=== PATIENT | female | born 1985 ===

== ENCOUNTER 2021-02-10 09:15 | Outpatient (RCR) | payer OTHER, SELFPAY ==
[2021-01-28 14:07] VITALS: BMI 27.4
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
--- NOTE | 2021-01-29 08:24 | PC.ADMIT ---
Patient is a 35 year old female who self referred to [facility] d/t PTSD sxs, increase in anxiety with panic attacks, and depression. Patient is newly sober since October and is struggling with her mental health. Patient is currently living at a sober home called [facility] and reports being sober since October. She reports that she has attended PHP in the past and it was helpful. Patient reports a history of inpatient admission in September s/p overdose on 50 tabs of Seroquel. Patient stated she called a friend who lives down the street after taking the pills and her friend drove her to the hospital for help. Patient stated the SA was a cry for help as she was feeling alone and hopeless at the time and that no one understood her. Feels grateful that it, didn't kill me . Patient reports legal issues (See Integrated Assessment for more details). Patient has a significant trauma history. Patient presented with irritable/agitated mood, restless in the beginning of the assessment however as the assessment went on patient's mood became less irritable. Patient denied SI. 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 Emailed patient a copy of her safety plan. Medications reconciled with patient and patient's pharmacy. Patient reports she is medication compliant. Patient stated [facility] her her medications that are in a locked box.
--- NOTE | 2021-01-29 13:20 | PC.NURSE ---
Patient called and left a message stating she was not feeling well and thinks it is something she ate. Stated she will not be attending group for the remainder of the day as a result. Patient plans on attending tomorrow. I called patient back and left a voice mail for patient to call me back to follow up.
--- NOTE | 2021-01-29 14:48 | PC.NURSE ---
case opened in treatment team
--- NOTE | 2021-02-03 14:40 | PC.NURSE ---
When client did not show up for the third group I called her. She states that she fell asleep and I just woke her up. She has been struggling with a headache all morning. She will be in tomorrow.
--- NOTE | 2021-02-04 11:38 | P.PNPSP_ITS ---
Subjective Subjective Date of Service: 02/04/21 Reason For Visit: Borderline Personality D/o, Anxiety, PTSD Subjective Notes: Lamar Warning Guardianship: No Medical Problems Affecting Mental Status: No Interim History: Maral reports overall feeling her mood has improved. However, is asking to be started on lamictal, as she had taken it in 2019 with positive effect for mood stabilization. Reports positive effect regarding increase of risperdal to 1mg in am. Continues with 0.5mg in pm. Reports has taken the seroquel 25prn several times, but is not taking daily, as she has not needed it. Wishes to remain on seroquel 100mg at night, as it helps me sleep . Reports she has not been experiencing nightmares or drug using dreams over past week. States intermediate house is stressful presently, due to half the residents testing positive for Covid, and isolation protocols in effect. Reports my recovery is going great , maintaining sobriety. Says that she knew that once my mental health was getting treated, I would not want to use . Denies any cravings. Says her outpatient psych prescriber has informed her to call when she completes PHP, and will see her then, and not see her while she is here. Denies SI, or any thoughts of self harm. No safety concerns. Medication Compliance: Yes Side effects from medications: No Attending Groups: Yes Review of Systems Acute medical concerns: No Medical Review of Systems: unchanged Review of Systems Review of Systems Yes all other systems are reviewed and are negative Mental Status Exam Mental Status Exam Narrative: Well-developed, well-nourished female, no apparent distress. No withdrawals / cravings noted. Alert and oriented x4. Well groomed, appropriately dressed. Fully alert and oriented x4. Appropriate and attentive during encounter, good eye contact. No abnormal movements noted. Posture erect. Ambulation not observed. Speech clear, normal alvin, articulate. Mood anxious, we have alot of stress in house right now . Affect congruent. Did not appear to be responding to internal stimuli. Denies AH/VH. Denies SI/HI. Thought process linear, goal-centered. Judgment and insight continue fair. Diagnostics Vital Signs (24Hr): Body Mass Index 27.4 Assessment & Plan Assessment & Plan (1) Mood disorder: Status: Acute Code(s): F39 - Unspecified mood [affective] disorder Assessment and Plan: Patient reports does not feel Trileptal is at adequate doses. Requesting to be started on Lamictal. Education regarding Trileptal and Lamictal provided, patient willing to increase dose of Trileptal to 450 mg twice daily. Patient taking seroquel 25mg prn, but not daily. Continues on risperdal 1mg in am, 0.5 at night, with positive effect. Discussed concurrent use of risperdal and seroquel. Patient wishes to continue with bedtime seroquel 100mg as it helps me sleep . (2) PTSD (post-traumatic stress disorder): Status: Acute Code(s): F43.10 - Post-traumatic stress disorder, unspecified Assessment and Plan: Patient reports prazosin 5 mg at bedtime is working well to help prevent nightmares. Reports the Risperdal is helping with intrusive thoughts, flashbacks, hyperarousal and hypervigilance. 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 Reports intermediate house is a supportive environment. Says working on sobriety, denies cravings, denies dreams of drug use. Assessment and Plan: Patient reports overall mood is improved, however still feels anxious, that her mood continues somewhat unstable. Also reports situational stress in house, related to multiple residents having active Covid, and subsequent isolation precautions. PLAN: 1. Increase trileptal to 450mg BID. 2. Continue other medications as ordered. 3. Follow-up as per protocol. Patient educated on: diagnosis, medication risk/benefits, substance abuse and therapeutic strategies Informed Consent: understands Reason for contiued partial hosp. stay Substantial Risk for: inability to function and med/psych decompensation Certification I certify that partial hospital treatment is medically necessary due to the symptoms and problems resulting from the patient's mental illness and the failure to treat the patient at the partial hospital level of care would likely result in the patient requiring inpatient psychiatric care which could not be prevented at a less intensive level of care. Greater than 50% of the session was spent on counseling and/or coordination of care Discharge Plan Discharge Attending provider: Getachew Proctor Medications: New risperidone 1 mg tablet 1 mg PO DAILY 7 Days Qty: 7 RF: 0 quetiapine [Seroquel] 25 mg tablet 25 mg PO DAILY PRN (Reason: anxiety) 7 Days Qty: 7 RF: 0 oxcarbazepine [Trileptal] 150 mg tablet 150 mg PO BID Qty: 14 RF: 0 No Action albuterol sulfate 90 mcg/actuation Hfa Aerosol Inhaler 2 puff INHALATION QID PRN (Reason: Shortness Of Breath) RF: 0 ibuprofen [Motrin] 800 mg Tablet 800 mg PO DAILY PRN (Reason: Pain) RF: 0 oxcarbazepine 300 mg Tablet 300 mg PO BID RF: 0 valacyclovir 500 mg Tablet 500 mg PO DAILY RF: 0 prazosin 5 mg Capsule 5 mg PO BEDTIME RF: 0 baclofen 10 mg Tablet 10 mg PO BID RF: 0 loratadine 10 mg Tablet 10 mg PO DAILY RF: 0 risperidone [Risperdal] 0.5 mg Tablet 0.5 mg PO BEDTIME RF: 0 quetiapine [Seroquel] 50 mg Tablet 100 mg PO BEDTIME RF: 0 Telehealth Telehealth Location of provider rendering services: practice address Location of patient: address on file Patient Identification confirmed using: Name, : Yes Telehealth method: video Patient verbally consented to treatment: Yes Patient verbally consented to billing insurance company: Yes Patient informed of any privacy concerns related to visit: Yes Time spent with patient (mins): 15
--- NOTE | 2021-02-05 12:53 | PC.NURSE ---
The client called this am to let us know that she is quarantined with her roommate and will not be able to attend this morning.
--- NOTE | 2021-02-09 13:06 | PC.NURSE ---
The client called out this morning because there was an emergency in her house and she was up most of the night. She states that she will be in tomorrow.
--- NOTE | 2021-02-10 13:31 | PC.NURSE ---
The client called during the first group to state that she left group because she was triggered by another group member who appeared to be high on cocaine. She states that she will not stay the day if he is in group.
--- NOTE | 2021-02-10 13:34 | PC.NURSE ---
I emailed a letter of completion directly to the client
--- NOTE | 2021-02-10 15:23 | P.EN_ITS ---
Event Note Date of Service: 02/10/21 Event Note: Attempted to contact patient via google meet for PHP psychopharm f [place] up appointment, however she did not log on for the virtual visit at the scheduled time. I called the patient during the scheduled time to inquire about her attendance and she did not answer, left VM asking her to log on or call the PHP program for update.
--- NOTE | 2021-02-11 09:54 | P.EN_ITS ---
Event Note Date of Service: 02/11/21 Event Note: Patient had left a message on answering machine on 02/10/2021 stating she was having difficulty logging into online provider meeting. This race and sports book writer called her and spoke with her on phone this morning. She is requesting refills of 1 mg Risperdal and the 150 mg Trileptal tabs, as she is awaiting her outpatient provider appointment. Scripts were sent for 30 day supply of each.
== END 2021-02-11 07:23 | disposition home or self-care (01) ==
LOC: HO.PHPA 09:15
PROVIDERS: Visit Provider Psychiatry & Neurology Psychiatry
DX: F43.10 Post-traumatic stress disorder, unspecified (principal); F33.2 Major depressive disorder, recurrent severe without psychotic features; F41.9 Anxiety disorder, unspecified; F60.3 Borderline personality disorder; F14.21 Cocaine dependence, in remission; Z79.899 Other long term (current) drug therapy; Z91.5 Personal history of self-harm
CPT/HCPCS: 90791; 90853

== ENCOUNTER 2023-11-04 08:14 | Outpatient (REF) | payer OTHER, SELFPAY ==
[2023-11-04 08:30] LABS: MANUAL DIFF FLAG NO
[2023-11-04 09:05] LABS: Basophils Percent Auto 0.2 % (0-2); Eosinophils Absolute Auto 0.1 X10*3/uL (0.0-0.4); Eosinophils Percent Auto 0.8 % (0-4); Estimated Average Glucose 105 mg/dL; Hematocrit 36.5 % (37.0-47.0); Hemoglobin 11.9 g/dl (12.0-16.0); Hemoglobin A1c % 5.3 % (<6.0); Imm Gran Abs Auto 0.05 X10*3/uL (0.00-0.03); Imm Gran Pct Auto 0.4 % (0.0-0.4); Lymphocytes Absolute Auto 2.9 X10*3/uL (1.2-4.9); Lymphocytes Percent Auto 25.7 % (20-40); Mean Corpuscular HGB Conc 32.6 g/dl (31.0-35.0); Mean Corpuscular Hemoglobin 26.6 pg (27.0-33.0); Mean Corpuscular Volume 81.5 fL (80.0-98.0); Mean Platelet Volume 9.7 fL (9.4-12.3); Monocytes Absolute Auto 0.7 X10*3/uL (0.1-1.2); Monocytes Percent Auto 5.7 % (2-11); Neutrophils Absolute Auto 7.7 x10*3/uL (2.0-8.3); Neutrophils Percent Auto 67.2 % (45-73); Platelet Count 297 X10*3/uL (160-400); Red Blood Count 4.48 X10*6/uL (4.20-5.50); Red Cell Distribution Width 14.1 % (11.0-16.0); White Blood Count 11.4 X10*3/uL (4.8-10.8)
[2023-11-04 09:44] LABS: Alanine Aminotransferase 10 U/L (0-31); Albumin Level 4.5 g/dL (3.5-5.0); Alkaline Phosphatase 58 U/L (39-117); Anion Gap 14 (12-20); Aspartate Amino Transferase 15 U/L (5-31); Bilirubin Total 0.6 mg/dL (0.0-1.0); Blood Urea Nitrogen 12 mg/dL (9-16); Calcium 9.5 mg/dL (8.4-10.2); Carbon Dioxide 25 mmol/L (22-29); Chloride 104 mmol/L (96-108); Cholesterol 202 mg/dL (<200); Estimated Glomerular Filt Rate > 60; Glucose Fasting 88 mg/dL (60-99); HDL Cholesterol 79 mg/dL (>40); LDL Cholesterol Calculated 109 mg/dL (<100); Potassium 4.6 mmol/L (3.3-5.1); Sodium 138 mmol/L (135-145); Total Protein 7.2 g/dL (6.5-8.0); Triglycerides 73 mg/dL (<150)
[2023-11-04 10:03] LABS: Syphilis Screen Reactive (Nonreactive)
[2023-11-04 10:05] LABS: HBS Num1 14.17 mIU/mL (0-7.99); HBc Num1 0.09 S/CO (0.00-0.79); HBsAGNum1 0.19 S/CO (0.00-0.99); HIV AB/AG Nonreactive (Nonreactive); HIV Num 1 0.05 S/CO (0.00-0.99); Hepatitis B Core Antibody Nonreactive (Nonreactive); Hepatitis B Surface Antigen Negative (Negative); ~HepC Num1 0.06 S/CO (0.00-0.79); ~Hepatitis B Surface Antibody REACTIVE (Nonreactive); ~Hepatitis C Antibody Nonreactive (Nonreactive)
[2023-11-04 10:08] LABS: Free T4 (Free Thyroxine) 0.89 ng/dL (0.71-1.85); Thyroid Stimulating Hormone 0.83 uIU/mL (0.32-4.0); Vitamin D 25-OH Total 29.9 ng/mL (>30)
[2023-11-04 10:50] LABS: Vitamin B12 675 pg/mL (200-900)
[2023-11-04 11:54] LABS: CT PCR NOT DETECTED (Not Detect.); NG PCR NOT DETECTED (Not Detect.)
[2023-11-11 14:44] LABS: RPR Quantitative Non-Reactive (Nonreactive)
[2023-11-11 14:46] LABS: T.Pallidum Particle Agg Test Reactive (Nonreactive)
== END 2023-11-04 08:15 | disposition home or self-care (01) ==
LOC: HO.LAB 08:14
PROVIDERS: PCP Physician Assistant Medical; Visit Provider Psychiatry & Neurology Psychiatry
DX: F33.2 Major depressive disorder, recurrent severe without psychotic features (principal); F41.9 Anxiety disorder, unspecified
CPT/HCPCS: 0353U; 80053; 80061; 82306; 82607; 83036; 84439; 84443; 85025; 86592; 86704; 86706; 86780; 86803; 87340; 87389

== ENCOUNTER 2023-11-08 08:45 | Outpatient (RCR) | payer OTHER, SELFPAY ==
[2023-10-27 11:53] VITALS: BMI 25.3
[2023-10-27 11:56] VITALS: BP 109/67; PULSE 70
--- NOTE | 2023-10-27 13:16 | PC.ADMIT ---
Patient is a 38 year old female who was referred to [facility] by probation services PO. According to Integrative Assessment patient is on probation for conspiracy and sex trafficking and has two more years to complete. She has a history of using heroin a few times in 2018, cocaine and alcohol, and is currently using Marijuana daily 10-15 hits a day. She does not feel this is an issue for her at this time. She reports having a medical marijuana card and her account officer is aware. She stated she uses marijuana for anxiety. Patient reports history of residential treatment at [facility] and attending AA meetings. Patient is alert and oriented x4. She presented with anxious mood and affect. Speech is somewhat pressured. Thoughts are clear and logical. She is not on any prescription medications and stated she does not want to be on any at this time. She is attending [facility] and plans on attending [facility] [employer] in the spring. 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
--- NOTE | 2023-10-27 16:28 | HO.PHP ---
Client's case has been opened and reviewed in treatment team.
[2023-10-28 06:17] LABS: Amphetamine Screen Urine Not Detected (Not Detect); Barbiturates, Urine Not Detected (Not Detect); Benzodiazepines Screen Urine Not Detected (Not Detect); Buprenorphine Scr Not Detected (Not Detect); Cannabinoid Screen Urine POSITIVE (Not Detect); Cocaine Screen Urine Not Detected (Not Detect); Fentanyl, urine Not Detected (Not Detect); Methadone Screen, Urine Not Detected (Not Detect); Opiate Screen Urine Not Detected (Not Detect); Oxycodone Screen Urine Not Detected (Not Detect); Phencyclidine Screen Urine Not Detected (Not Detect)
--- NOTE | 2023-10-31 07:37 | HO.PHP ---
PHP admin, Patricia, informed the [facility] staff that Maral will not be in attendance to program today due to her stomach not feeling well. Patricia reported no safety concerns and stated that Maral will be here tomorrow.
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
--- NOTE | 2023-11-09 08:22 | PC.NURSE ---
Dr Ahuja is aware of patient's reactive syphilis lab result noted on 11/04/23. Patient was reportedly treated in 2021.
--- NOTE | 2023-11-09 09:38 | PC.NURSE ---
I met with patient to make an appointment with [facility] to f/u with reactive Syphilis result. Titers are still pending. Maral called [facility] in [place] to make an appointment. She let them know she had a positive Syphilis result. [facility] stated they will call her back with an appointment. Patient stated she was treated for Syphilis at [facility] in the past. Dr Ahuja spoke to patient on Tuesday regarding positive results and titers pending. Patient upset and yelling in my office, stating the person she was with gave her Syphilis in the past and she recently was with him again and he told her he was treated and did not have it anymore. She stated she wants to be discharged and she can't be here anymore. She met with Liliana regarding discharge. She did not sign discharge paperwork as she was yelling stating she needed to leave.
--- NOTE | 2023-11-09 09:40 | HO.PHP ---
At roughly 9:35 am pt requested to be discharged from program now, stated today was her last day but she would like to leave now not the end of the day. Pt was upset, agitated, pacing, stated she received news that has her very upset. Pt did not express any safety concerns, stated I'm just really mad and could not be in group like this. When prompted, pt identified several external factors she is working on including looking for employment, health appts and school. Pt quickly filled out the PHQ-9 and stated I'm fine! , said she was only here because she was mandated, pt complained about the program briefly, then apologized. Pt not open to sitting and talking further for support, asked if she was all set then left. At roughly 9:55 am pt called programming to apologize. Thanked staff for the support and explained why she was upset to [facility] community health coordinator and asked her please tell staff that she is grateful for the support she received and that apologizes for her behavior. Pt was calmer and appreciative.
== END 2023-11-09 23:59 | disposition home or self-care (01) ==
LOC: HO.PHPA 08:45
PROVIDERS: Visit Provider Psychiatry & Neurology Psychiatry
DX: F39 Unspecified mood [affective] disorder (principal); F60.3 Borderline personality disorder; F12.929 Cannabis use, unspecified with intoxication, unspecified; F14.21 Cocaine dependence, in remission; F10.21 Alcohol dependence, in remission; F43.10 Post-traumatic stress disorder, unspecified
CPT/HCPCS: 80307; 90791; 90853

== ENCOUNTER 2024-01-26 10:36 | Outpatient (AMB) | payer OTHER, SELFPAY ==
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
[2024-01-26 10:47] VITALS: BP 98/64; PULSE 98; RESP 14; O2SAT 98; BMI 24.0
== END 2024-01-26 11:25 | disposition home or self-care (01) ==
PROVIDERS: Visit Provider Physician Assistant Medical
DX: F10.21 Alcohol dependence, in remission (principal); F14.21 Cocaine dependence, in remission; F60.3 Borderline personality disorder; F33.2 Major depressive disorder, recurrent severe without psychotic features; R11.2 Nausea with vomiting, unspecified; M79.642 Pain in left hand; M54.2 Cervicalgia; F41.9 Anxiety disorder, unspecified
CPT/HCPCS: 99204; G2211

== ENCOUNTER 2025-04-18 11:55 | Outpatient (AMB) | payer OTHER, SELFPAY ==
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
[2025-04-18 14:09] VITALS: BP 98/62; PULSE 95; RESP 15; TEMP 36.8; O2SAT 98; BMI 25.1
--- OUTSIDE RECORDS SUMMARY | 2025-04-18 18:10 | XMS_ITS | Clinical Summary ---
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 Name Role Phone Unavailable Primary Care Provider Unavailabl e Allergies No known active allergies Social History Tobacco Use Types Packs/Day Years Used Date Smoking Tobacco: Never Assessed Comments Unknown Sex and Gender Information Value Date Recorded Sex Assigned at Female 02/20/2023 3:13 PM EDT Legal Sex Female 5:22 AM EDT Gender Identity Female 02/20/2023 3:13 PM EDT Sexual Orientation Heterosexual (straight) 02/20 3:13 PM EDT Last Filed Vital Signs Vital Sign Reading Time Taken Comments Blood Pressure 111/57 02/20/2023 3:22 PM EDT Pulse 90 02/20/2023 3:22 PM EDT Temperature 36.1 C (96.9 F) 02/20/2023 12:32 PM EDT Respiratory Rate 16 02/20/2023 3:22 PM EDT Oxygen Saturation 97% 02/20/2023 3:22 PM EDT Inhaled Oxygen Concentration - - Weight - - Height - - Body Mass Index - - Plan of Treatment Health Maintenance Due Date Last Done Comments Hepatitis C Virus Screening 1985 HIV Screening 1998 DTaP/Tdap/Td Vaccines (1 - Tdap) 02/16/2004 Hepatitis B Vaccines (1 of 3 - 19+ 3-dose series) 02/16/2004 Pap Smear (Ages 21-65) 2006 Influenza Vaccine 12/28/2024 COVID-19 Vaccine (2 - 2024-2 6 season) 2025 12/03/2020 Mammogram 2025 HPV Vaccines (No Doses Required) Completed Pneumococcal Vaccine: Pediat arianna (0-5 Years) and At-Risk Patients (6 to 49 Years) Aged Out No longer eligible b ased on patient's age to complete this topic Insurance MEDICAID OUT OF STATE [facility]
== END 2025-04-18 14:32 | disposition home or self-care (01) ==
LOC: HO.HMCFM 11:56
PROVIDERS: PCP Physician Assistant Medical; Visit Provider Physician Assistant Medical
DX: R20.2 Paresthesia of skin (principal); M54.2 Cervicalgia; M54.50 Low back pain, unspecified; G89.29 Other chronic pain; M25.531 Pain in right wrist; M25.532 Pain in left wrist

== ENCOUNTER → 2025-04-18 11:55 | Outpatient (BNVA) | payer OTHER, SELFPAY | PROVIDERS: PCP Physician Assistant Medical; Visit Provider Physician Assistant Medical | DX: R20.2 Paresthesia of skin (principal); M54.2 Cervicalgia; M54.50 Low back pain, unspecified; G89.29 Other chronic pain; M25.531 Pain in right wrist; M25.532 Pain in left wrist; Z13.31 Encounter for screening for depression; Z13.39 Encounter for screening examination for other mental health and behavioral disorders | CPT/HCPCS: 96127; 99212 ==

== ENCOUNTER 2025-05-14 13:10 | Outpatient (REF) | payer OTHER, SELFPAY ==
--- NOTE | 2025-05-14 14:04 | EMG_ITS ---
Chief complaint: Numbness both hands, CTS Referred by:Catia Bates NP Procedure done: Bilateral upper extremities NCS/EMG Bilateral median and ulnar motor studies were performed, bilateral median and ulnar mixed sensory studies were performed, bilateral median and ulnar digit ortho sensory studies were performed radial sensory studies were performed and needle examination was performed. Findings: Right median mixed distal latencies was mildly prolonged. Otherwise no significant abnormality was noted on this study. Impression: Mild right median neuropathy across carpal tunnel. Otherwise no significant abnormality noted. Codin [id number] 2 extremities MTDD
--- OUTSIDE RECORDS SUMMARY | 2025-05-14 17:13 | XMS_ITS | Clinical Summary ---
Author Organization [facility] [address] Care Team Providers Care Web Marketing Manager Name Role Phone Tabatha Hanna MD Primary Care Provider [phone] Surgical History Surgery Date Site/Laterality Comments OTHER SURGICAL HISTORY PROCEDURE: SD DILATION & CURETTAGE DX&/THER NONOBSTETRIC TUBAL LIGATION PROCEDURE: HISTORICAL TUBAL LIGATION Medical History Medical History Date Comments Excessive sweating 08/08/2009 DX:Excessive sweating Depression DX:Depression Anxiety DX:Anxiety Marijuana smoker, continuous DX: Marijuana smoker, continuous Abnormal abdominal CT scan 11/2017 DX:Ab normal abdominal CT scan; COMMENT: [facility], hemangioma of liver: liver periPortal edema Spondylolisthesis at L5-S1 level 12/31/2020 DX:Spondylolisthesis at L5-S1 level Polysubstance abuse (CMS/HCC V24, CMS/HCC V28) DX:Polysubstance abuse (HCC) ; COMMENT: in program 2020 until 12/03 Family History Medical History Relation Name Comments Diabetes Aunt No Known Problems Father biological father unknown history Heart attack Maternal Grandfather Cataracts Maternal Grandmother Macular degeneration Maternal Grandmother Other: gestational diabetes Mother Other: leiomyosarcoma Mother on per ineum, in remission No Known Problems Sister Blindness Neg Hx Glaucoma Neg Hx Relation Name Status Comments Aunt Alive Brother Alive healthy Father healthy Maternal Grandfather Maternal Grandmother Alive Mother Alive healthy Sister Social History Tobacco Use Types Packs/Day Years Used Date Smoking Tobacco: Some Days Cigarettes Smokeless Tobacco: Never Alcohol Use Standard Drinks/Week Comments Not Currently 0 (1 standard drink = 0.6 oz pur e alcohol) Comments Unknown Sex and Gender Information Value Date Recorded Sex Assigned at Not on file Legal Sex Female 10:22 PM EST Gender Identity Not on file Sexual Orientation Not on file Plan of Treatment Health Maintenance Due Date Last Done Comments Breast Cancer Screening 1985 Hepatitis A Vaccines (1 of 2 - Risk 2-dose series) 02/16/2004 Pneumococcal Vaccine: Pediatrics (0 to 5 Years) and At-Risk Patients (6 to 49 Years) (1 of 2 - PCV) 02/16/2004 HIV Screening 05/08/2022 Hepatitis C Screening 05/08/2022 Social Influencers of Health Screening 05/08/2022 Cervical Cancer Screening: Pap Smear 02/25/2024 02/24/2021 Depression Screening 05/30/2024 COVID-19 Vaccine ( - season) 2025 12/03/2020 Influenza Vaccine (#1) 2025 08/08/2009 DTaP,Tdap,and Td Vaccines (10 - Td or Tdap) 12/04/2030 12/04/2020, 06/25/2009, 03/30/2005, Additional history exists RSV Immunization Adult Patients (1 - 1-dose 75+ series) 02/16/2060 HIB Vaccines Completed 02/27/1987 IPV Vaccines Completed 12/28/1989, 05/1986, 09/27/1986, Additional history exists MMR Vaccines Completed 01/21/1997, 05/30/1986 Hepatitis B Vaccines Completed 11/20/1997, 04/04/1997, 01/21/1997 HPV Vaccines Completed 01/26/2010, 07/28, 04/22/2009 Meningococcal ACWY Vaccine Aged Out N o longer eligible based on patient's age to complete this topic Meningococcal B Vaccine Aged Out No l onger eligible based on patient's age to complete this topic RSV Immunization Patients Under 20 months Aged Out No longer eligible based on patient's age to complete this topic Varicella Vaccines Aged Out No longer eligible based on patient's age to complete this topic Procedures Procedure Name Priority Date/Time Associated Diagnosis Comments PAP SMEAR Routine 02/24/2021 from Last 3 Months or Most Recently Relevant to Health Maintenance Results * Pap smear (02/24/2021) 02/24/2021 Narrative HISTORICAL TESTING LAB RESULTING AGENCY - 03/09/2021 8:36 AM EDT [id number] THINPREP PAP, IMAGED: NEGATIVE FOR SQUAMOUS INTRAEPITHELIAL LESION AND MALIGNANCY . JAVIER PLASCENCIA(ASCP) (CASE ELECTRONICALLY SIGNED 03 06 2021) RESULT OF APTIMA HIGH RISK HPV ASSAY: HIGH RISK HPV: NEGATIVE (SEROTYPES 16,18,31,33,35,39,45,51,52,56,58,59,66,68) COMPLETED ON 2021-02-26 ADEQUACY: SATISFACTORY ENDOCERVICAL/TRANSFORMATION ZONE COMPONENT ABSENT. SOURCE: THINPREP PAP HPV ANY DX: REFLEX 16 AND 18, CERVICAL, IMAGED CLINICAL INFORMATION: HPV ANY DIAGNOSIS. HORMONES, PAP HX POS, LMP 02/06/21, Z12.4 us Sue Carrizales [facility] CYTOLOGY ORDERABLES Robyn geoff Result HISTORICAL TESTING LAB RESULTING AGENCY from Last 3 Months or Most Recently Relevant to Health Maintenance Care Teams Web Marketing Manager Relationship Specialty Start Date End Date Tabatha Hanna MD PCP - General Internal Medicine 07/26/18
--- OUTSIDE RECORDS SUMMARY | 2025-05-14 17:13 | XMS_ITS | Clinical Summary ---
Author Organization [facility] Address [address] [place] [id number] Care Team Providers Care Audit Director Name Role Phone Unavailable Primary Care Provider [...] this topic Insurance MEDICAID [facility] [place]
== END 2025-05-14 13:11 | disposition home or self-care (01) ==
LOC: HO.NEURO 13:10
PROVIDERS: PCP Physician Assistant Medical; Visit Provider Physician Assistant Medical
DX: R20.2 Paresthesia of skin (principal)
CPT/HCPCS: 95886; 95913

== ENCOUNTER → 2025-05-14 14:04 | Outpatient (BNV) | payer OTHER, SELFPAY | PROVIDERS: PCP Physician Assistant Medical; Visit Provider Psychiatry & Neurology Neurology | DX: G56.01 Carpal tunnel syndrome, right upper limb (principal); R20.0 Anesthesia of skin | CPT/HCPCS: 95886; 95913 ==